=== PATIENT | male | born 1990 | race Two or more races ===

== ENCOUNTER 2016-12-28 17:29 | Emergency (ER) | payer SELFPAY ==
[~2016-12-28] VITALS: Ht 190.5 cm; Wt 131.5 kg
[2016-12-28 17:58] VITALS: BP 138/68
[2016-12-28] MEDS ORDERED: AMOX875T PO (18:40)
--- NOTE | 2016-12-28 18:41 | PHYS DOC ---
Past Medical History Past Medical History: No Pertinent History Past Surgical History: No Surgical History Alcohol Use: None Drug Use: None Adult General Chief Complaint Chief Complaint: RINGING IN EARS HPI HPI Patient is a 26 year old mentally no significant medical history who presents with ringing in the ears that began today. Patient states he has had nasal congestion for a couple days. Patient denies any fever. Patient states he has right ear pain only when he coughs or sneezes. Review of Systems Review of Systems Constitutional: Denies fever or chills [] Eyes: Denies change in visual acuity, redness, or eye pain [] HENT: right ear pain, ringing in the ears with nasal congestion. Respiratory: cough Cardiovascular: No additional information not addressed in HPI [] GI: Denies abdominal pain, nausea, vomiting, bloody stools or diarrhea [] : Denies dysuria or hematuria [] Musculoskeletal: Denies back pain or joint pain [] Integument: Denies rash or skin lesions [] Neurologic: Denies headache, focal weakness or sensory changes [] Endocrine: Denies polyuria or polydipsia [] Allergies Allergies Allergies Coded Allergies Type Severity Reaction Last Updated Verified No Known Drug Allergies 12/28/16 No Physical Exam Physical Exam Constitutional: Well developed, well nourished, no acute distress, non-toxic appearance. [] HENT: Normocephalic, atraumatic, bilateral external ears normal, oropharynx moist, no oral exudates, nose normal. [] Bilateral ear canals with mild amount of cerumen. mild erythema to bilateral TM. Eyes: PERRLA, EOMI, conjunctiva normal, no discharge. [] Neck: Normal range of motion, no tenderness, supple, no stridor. [] Cardiovascular:Heart rate regular rhythm, no murmur [] Lungs & Thorax: Bilateral breath sounds clear to auscultation [] Abdomen: Bowel sounds normal, soft, no tenderness, no masses, no pulsatile masses. [] Skin: Warm, dry, no erythema, no rash. [] Back: No tenderness, no CVA tenderness. [] Extremities: No tenderness, no cyanosis, no clubbing, ROM intact, no edema. [] Neurologic: Alert and oriented X 3, normal motor function, normal sensory function, no focal deficits noted. [] Psychologic: Affect normal, judgement normal, mood normal. [] Current Patient Data Vital Signs Vital Signs Date Time Temp Pulse Resp B/P (MAP) Pulse Ox O2 Delivery O2 Flow Rate FiO2 12/28/16 17:58 97.6 93 16 98 Room Air 97.6 EKG EKG [] Radiology/Procedures Radiology/Procedures [] Course & Med Decision Making Course & Med Decision Making Pertinent Labs and Imaging studies reviewed. (See chart for details) Patient has upper respiratory infection, cough,cerumen impaction, amoxicillin for otitis media. Patient was instructed to use ytbi-wxi-zfbrzdn cerumen removal agents including Debrox. Dragon Disclaimer Dragon Disclaimer This electronic medical record was generated, in whole or in part, using a voice recognition dictation system. Departure Departure Impression: Primary Impression: Tinnitus of both ears Additional Impressions: Impacted cerumen of both ears Cough Upper respiratory infection Otitis media Disposition: 01 HOME, SELF-CARE Condition: STABLE Referrals: NO PCP (PCP) Follow-up with your own doctor in 1-2 weeks Patient Instructions: Cerumen Impaction, Cough, Adult, [id number], Otitis Media, Adult, Upper Respiratory Infection, Adult, [id number] Additional Instructions: You need to buy diud-hmf-rokuyti cerumen removal agents including Debrox to remove wax from you ears. You can take vqde-baq-peuxzmy cough and congestion medicines. Complete your antibiotics. Scripts Amoxicillin (AMOXICILLIN) 875 Mg Tablet 1 TAB PO BID, #20 TAB Prov: RUPA WATSON APRN 12/28/16 Problem Qualifiers Additional Impressions: Upper respiratory infection URI type: unspecified URI Qualified Codes: J06.9 - Acute upper respiratory infection, unspecified Otitis media Otitis media type: other nonsuppurative Laterality: bilateral Chronicity: acute Recurrence: not specified as recurrent Qualified Codes: H65.193 - Other acute nonsuppurative otitis media, bilateral RUPA WATSON [employer] RE[employer]ER Dec 28, 2016 18:41
== END 2016-12-28 18:50 | disposition home or self-care (01) ==
LOC: ER 17:29
DX: H93.13 Tinnitus, bilateral (principal); H61.23 Impacted cerumen, bilateral; J06.9 Acute upper respiratory infection, unspecified; R05 Cough; R09.81 Nasal congestion
CPT/HCPCS: 99283

== ENCOUNTER 2017-03-17 03:00 | Emergency (ER) | payer SELFPAY ==
[~2017-03-17] VITALS: Ht 188 cm; Wt 131.5 kg
[~2017-03-17 03:00] MED LIST: AMOX875T PO
[2017-03-17] MEDS ORDERED: ONDANSETRON PF 4 MG/2 ML VIAL. IV ONE (04:00)
[2017-03-17] MEDS ORDERED: MECLIZINE HCL 12.5 MG TABLET. PO ONE (04:00)
--- NOTE | 2017-03-17 04:29 | RAD ---
CT head without contrast 03/17/2017 CLINICAL INDICATION: Vertigo. Comparison: None. TECHNIQUE: Multiple CT images of the head were obtained without contrast. *One or more of the following individualized dose reduction techniques were utilized for this examination: 1. Automated exposure control. 2. Adjustment of the mA and/or kV according to patient size. 3. Use of iterative reconstruction technique. FINDINGS: Ventricles and subarachnoid spaces are normal in size and configuration. No acute intracranial hemorrhage or extra-axial fluid collection. Leonard-white matter interfaces are maintained. The basal cisterns are patent. No midline shift or mass effect. IMPRESSION: No acute intracranial hemorrhage or mass effect. Electronically signed by: Jerome Bejarano MD (03/17/2017 4:25 AM) [id number]
[2017-03-17 04:30] LABS: BASO # 0.1 x10^3/uL (0.0-0.2); BASO % 1 % (0-3); EOS % 1 % (0-3); HEMATOCRIT 44.4 % (39.0-53.0); HEMOGLOBIN 14.9 g/dL (13.0-17.5); LYMPH # 3.3 x10^3/uL (1.0-4.8); LYMPH % 33 % (24-48); MEAN CORPUSCULAR HEMOGLOBIN 29 pg (25-35); MEAN CORPUSCULAR HGB CONC 34 g/dL (31-37); MEAN CORPUSCULAR VOLUME 86 fL (79-100); MONO % 6 % (0-9); NEUT % 60 % (31-73); PLATELET COUNT 309 x10^3/uL (140-400); RED BLOOD COUNT 5.16 x10^6/uL (4.30-5.70); RED CELL DISTRIBUTION WIDTH 13.5 % (11.5-14.5); WHITE BLOOD COUNT 10.1 x10^3/uL (4.0-11.0)
[2017-03-17 04:44] LABS: CALCIUM 8.8 mg/dL (8.5-10.1); GFR 89.6; POTASSIUM 3.7 mmol/L (3.5-5.1)
[2017-03-17 04:54] LABS: BILIRUBIN,URINE NEGATIVE (NEG); GLUCOSE,URINE NEGATIVE (NEG); NITRITE,URINE NEGATIVE (NEG); PH,URINE 5.5; PROTEIN,URINE NEGATIVE (NEG-TRACE); UROBILINOGEN,URINE 0.2 mg/dL (0.2 mg/dL)
[2017-03-17 04:59] LABS: BACTERIA,URINE 0 /HPF (0-FEW); RBC,URINE 0 /HPF (0-2); SQUAMOUS EPITHELIAL CELL,UR OCC /LPF; WBC,URINE 0 /HPF (0-4)
[2017-03-17 05:00] LABS: BARBITURATES NEG (NEG); BENZODIAZEPINES NEG (NEG); CANNABINOIDS NEG (NEG); COCAINE NEG (NEG); METHADONE NEG (NEG); OPIATES NEG (NEG); PHENCYCLIDINE NEG (NEG)
[2017-03-17 05:24] VITALS: BP 119/58
[2017-03-17] MEDS ORDERED: CARB-117 OT (05:42)
[2017-03-17] MEDS ORDERED: MECL25TA3 PO (05:42)
[2017-03-17] MEDS ORDERED: ONDA4TAB7 PO (05:42)
--- NOTE | 2017-03-17 07:09 | ED.ADGEN ---
Past Medical History Past Medical History: Other Additional Past Medical Histor: Vertigo Past Surgical History: No Surgical History Alcohol Use: None Drug Use: None Adult General Chief Complaint Chief Complaint: DIZZY/LIGHT HEADED HPI HPI Patient is a 26 year old man, with a history of vertigo, and "something they saw in my brain on CT", who presents to the emergency department with complaint of nausea, dizziness, lightheadedness, vomiting, and ear pain, worse on the right, for the past day. Also experiencing a mild headache on the top of his head. States that this happened previously. Patient states that he was evaluated in [place] about 2 years ago for similar symptoms and was told that he had vertigo. He states that he was supposed to have additional evaluation but is not follow-up as [place] Does not have a primary care provider, has not had any additional workup. He states he was told to see an ENT but did not follow-up. He states that he began experiencing dizziness and lightheadedness earlier today is getting progressively worse. He states that he was told that "there was something in my brain on CT", but is unable clarify further. He denies any injuries, any vision changes, any focal weakness, numbness, tingling, states that it feels as though "I am floating", and as though the room is moving around him. No syncope or presyncopal events, no chest pain, shortness breath. Denies any injuries. Review of Systems Review of Systems Constitutional: Denies fever or chills. [] Eyes: Denies change in visual acuity. [] HENT: Denies nasal congestion or sore throat. [] Respiratory: Denies cough or shortness of breath. [] Cardiovascular: Denies chest pain or edema. [] GI: Denies abdominal pain, nausea, vomiting, bloody stools or diarrhea. [] : Denies dysuria. [] Musculoskeletal: Denies back pain or joint pain. [] Integument: Denies rash. [] Neurologic: Denies headache, focal weakness or sensory changes. [] Endocrine: Denies polyuria or polydipsia. [] Lymphatic: Denies swollen glands. [] Psychiatric: Denies depression or anxiety. [] Current Medications Current Medications Current Medications Medications (Trade) Dose Ordered Sig/Ginger Start Time Stop Time Status Last Admin Dose Admin Meclizine HCl (Antivert) 25 mg 1X ONCE 03/17/17 04:00 03/17/17 04:01 DC 03/17/17 04:30 25 MG Ondansetron HCl (Zofran) 4 mg 1X ONCE 03/17/17 04:00 03/17/17 04:01 DC 03/17/17 04:30 4 MG Allergies Allergies Allergies Coded Allergies Type Severity Reaction Last Updated Verified No Known Drug Allergies 12/28/16 No Physical Exam Physical Exam Constitutional: Well developed, well nourished, complaining of nausea and lightheadedness, non-toxic appearance. [] HENT: Normocephalic, atraumatic, bilateral external ears normal, oropharynx moist, no oral exudates, nose normal. []Issue with a moderate amount of cerumen noted in the right ear, visualized TM is unremarkable, small amount of cerumen noted in the left. TM also normal. No mastoid tenderness, no evidence of acute infection or inflammation. Eyes: PERRLA, EOMI, conjunctiva normal, no discharge. [] No nystagmus. Neck: Normal range of motion, no tenderness, supple, no stridor. [] Cardiovascular:Heart rate regular rhythm, no murmur, S1, S2, rubs or gallops. [] Lungs & Thorax: Bilateral breath sounds clear to auscultation, no wheezing, rhonchi, rales. No chest wall crepitus or tenderness. [] Abdomen: Bowel sounds normal, soft, no tenderness, no rebound, rigidity, no guarding, no masses, no pulsatile masses. [] Skin: Warm, dry, no erythema, no rash. [] Back: No tenderness, no CVA tenderness. [] Extremities: No tenderness, no cyanosis, no clubbing, ROM intact, no edema. [ Negative Homans sign.] Neurologic: Alert and oriented X 3, normal motor function, normal sensory function, no focal deficits noted. [] Psychologic: Affect normal, judgement normal, mood normal. [] Current Patient Data Vital Signs Vital Signs Date Time Temp Pulse Resp B/P (MAP) Pulse Ox O2 Delivery O2 Flow Rate FiO2 03/17/17 05:24 65 16 119/58 (78) 96 Room Air 03/17/17 03:16 98.2 98.2 Lab Values Laboratory Tests Test 03/17/17 04:25 03/17/17 04:40 White Blood Count 10.1 x10^3/uL (4.0-11.0) Red Blood Count 5.16 x10^6/uL (4.30-5.70) Hemoglobin 14.9 g/dL (13.0-17.5) Hematocrit 44.4 % (39.0-53.0) Mean Corpuscular Volume 86 fL (79-100) Mean Corpuscular Hemoglobin 29 pg (25-35) Mean Corpuscular Hemoglobin Concent 34 g/dL (31-37) Red Cell Distribution Width 13.5 % (11.5-14.5) Platelet Count 309 x10^3/uL (140-400) Neutrophils (%) (Auto) 60 % (31-73) Lymphocytes (%) (Auto) 33 % (24-48) Monocytes (%) (Auto) 6 % (0-9) Eosinophils (%) (Auto) 1 % (0-3) Basophils (%) (Auto) 1 % (0-3) Neutrophils # (Auto) 6.1 x10^3uL (1.8-7.7) Lymphocytes # (Auto) 3.3 x10^3/uL (1.0-4.8) Monocytes # (Auto) 0.6 x10^3/uL (0.0-1.1) Eosinophils # (Auto) 0.1 x10^3/uL (0.0-0.7) Basophils # (Auto) 0.1 x10^3/uL (0.0-0.2) Sodium Level 138 mmol/L (136-145) Potassium Level 3.7 mmol/L (3.5-5.1) Chloride Level 104 mmol/L (98-107) Carbon Dioxide Level 26 mmol/L (21-32) Anion Gap 8 (6-14) Blood Urea Nitrogen 14 mg/dL (8-26) Creatinine 1.0 mg/dL (0.7-1.3) Estimated GFR (Cockcroft-Gault) 89.6 Glucose Level 99 mg/dL (70-99) Calcium Level 8.8 mg/dL (8.5-10.1) Urine Collection Type Unknown Urine Color Yellow Urine Clarity Clear Urine pH 5.5 Urine Specific Harris 1.020 Urine Protein Negative mg/dL (NEG-TRACE) Urine Glucose (UA) Negative mg/dL (NEG) Urine Ketones (Stick) Negative mg/dL (NEG) Urine Blood Negative (NEG) Urine Nitrite Negative (NEG) Urine Bilirubin Negative (NEG) Urine Urobilinogen Dipstick 0.2 mg/dL (0.2 mg/dL) Urine Leukocyte Esterase Negative (NEG) Urine RBC 0 /HPF (0-2) Urine WBC 0 /HPF (0-4) Urine Squamous Epithelial Cells Occ /LPF Urine Bacteria 0 /HPF (0-FEW) Urine Mucus Mod /LPF Urine Opiates Screen Neg (NEG) Urine Methadone Screen Neg (NEG) Urine Barbiturates Neg (NEG) Urine Phencyclidine Screen Neg (NEG) Urine Amphetamine/Methamphetamine Neg (NEG) Urine Benzodiazepines Screen Neg (NEG) Urine Cocaine Screen Neg (NEG) Urine Cannabinoids Screen Neg (NEG) Urine Ethyl Alcohol Neg (NEG) Laboratory Tests 03/17/17 04:25 Laboratory Tests 03/17/17 04:25 EKG EKG EC: Sinus rhythm, heart rate 61 beats are minute, upright axis, QTC of 386, CO 134, QRS of 86, no ST elevations or depressions, slightly peaked T waves noted, consistent with patient's body habitus and age. No evidence of acute ST abnormalities. As interpreted by me.[] Radiology/Procedures Radiology/Procedures [][facility] [address] [place] [address] IMAGING REPORT Signed PATIENT: NATALIA BARLOW ACCOUNT: [id number] : 1990 LOCATION: ER AGE: 26 SEX: M EXAM STATUS: REG ER ORD. PHYSICIAN: WILLIAM SANTILLAN DO REASON: Hx of abnormal head CT/vertigo PROCEDURE: CT HEAD WO CONTRAST CT head without contrast 03/17/2017 CLINICAL INDICATION: Vertigo. Comparison: None. TECHNIQUE: Multiple CT images of the head were obtained without contrast. *One or more of the following individualized dose reduction techniques were utilized for this examination: 1. Automated exposure control. 2. Adjustment of the mA and/or kV according to patient size. 3. Use of iterative reconstruction technique. FINDINGS: Ventricles and subarachnoid spaces are normal in size and configuration. No acute intracranial hemorrhage or extra-axial fluid collection. Leonard-white matter interfaces are maintained. The basal cisterns are patent. No midline shift or mass effect. IMPRESSION: No acute intracranial hemorrhage or mass effect. Electronically signed by: Jeremiah Bejarano MD (03/17/2017 4:25 AM) [facility] DICTATED and SIGNED BY: JEREMIAH BEJARANO MD DATE: 03/17/17 0423 CC: WILLIAM SANTILLAN DO; NO PCP ~ Course & Med Decision Making Course & Med Decision Making Pertinent Labs and Imaging studies reviewed. (See chart for details) Due to patient's unclear history of evaluation, and multiple symptoms, with report of "something in my head", after discussion at bedside will proceed with CT imaging of the head, laboratory studies, also administered Zofran and meclizine. Patient's CT imaging did not reveal any evidence of concerning findings, which was discussed with patient, laboratory studies were also unremarkable. On reevaluation, patient states he is feeling much better after receiving meclizine and Zofran, is now ambulating without difficulty in the ED. He states he is ready for discharge home. Patient noted to have some cerumen in the bilateral ears, was advised on use of Debrox, Zofran, and meclizine. Importance of establishing a primary care provider also discussed in detail, along with concerning symptoms that would prompt return to the emergency department for additional evaluation. Patient and significant other at bedside voice understanding and agreement. Patient discharged home in stable condition, with resolution of symptoms, with prescript prescriptions, precautions, and plan as above. Dragon Disclaimer Koko Disclaimer This electronic medical record was generated, in whole or in part, using a voice recognition dictation system. Departure Impression: Primary Impression: Vertigo Disposition: 01 HOME, SELF-CARE Condition: IMPROVED Scripts Ondansetron Hcl (ZOFRAN) 4 Mg Tablet 1 TAB PO PRN Q8HRS Y for NAUSEA, #12 TAB Prov: WILLIAM SANTILLAN DO 03/17/17 Meclizine Hcl (MECLIZINE HCL) 25 Mg Tablet 1-2 TAB PO PRN TID Y for VERTIGO, #30 TAB Prov: WILLIAM SANTILLAN DO 03/17/17 Carbamide Peroxide (Earwax Treatment Drops) 15 Ml Drops 15 ML OT BID Y for Ear Wax for 4 Days, #1 BOTTLE Please apply 5-10 drops in each ear twice daily for a maximum of 4 days to promote removal of earwax. Do not use for more than 4 days in a row. Prov: WILLIAM SANTILLAN DO 03/17/17 WILLIAM SANTILLAN DO Mar 17, 2017 07:09
--- NOTE | 2017-03-17 13:29 | EKG ---
[facility] [address] [place] [address] Test Date: 2017-03-17 Test Time: 04:35:30 Pat Name: NATALIA BARLOW Department: Room: Gender: M [employer]man: : 1990 Requested By: WILLIAM SANTILLAN Order Number: [id number] Reading MD: Sally Hannon Measurements Intervals [place] Rate: 61 P: 34 ND: 134 QRS: 21 QRSD: 86 T: 24 QT: 382 QTc: 386 Interpretive Statements SINUS RHYTHM NORMAL ECG Electronically Signed On 03-20-2017 11:15:44 CDT by Sally Hannon
== END 2017-03-17 05:49 | disposition home or self-care (01) ==
LOC: ER 03:00
DX: R42 Dizziness and giddiness (principal); H61.23 Impacted cerumen, bilateral; R11.2 Nausea with vomiting, unspecified; Z79.899 Other long term (current) drug therapy
CPT/HCPCS: 36415; 70450; 80048; 80307; 81001; 85025; 93005; 96374; 99285; J2405; J8597; G0479

== ENCOUNTER 2017-12-04 02:43 | Emergency (ER) | payer SELFPAY ==
[2017-12-04 03:19] LABS: ADD MAN DIFF? NO
[2017-12-04 03:24] LABS: BASO # 0.1 x10^3/uL (0.0-0.2); BASO % 1 % (0-3); EOS # 0.2 x10^3/uL (0.0-0.7); EOS % 2 % (0-3); HEMATOCRIT 44.2 % (39.0-53.0); HEMOGLOBIN 15.1 g/dL (13.0-17.5); LYMPH # 3.9 x10^3/uL (1.0-4.8); LYMPH % 35 % (24-48); MEAN CORPUSCULAR HEMOGLOBIN 30 pg (25-35); MEAN CORPUSCULAR HGB CONC 34 g/dL (31-37); MEAN CORPUSCULAR VOLUME 87 fL (79-100); MONO # 0.6 x10^3/uL (0.0-1.1); MONO % 5 % (0-9); NEUT # 6.5 x10^3uL (1.8-7.7); NEUT % 58 % (31-73); PLATELET COUNT 340 x10^3/uL (140-400); RED BLOOD COUNT 5.11 x10^6/uL (4.30-5.70); RED CELL DISTRIBUTION WIDTH 13.2 % (11.5-14.5); WHITE BLOOD COUNT 11.2 x10^3/uL (4.0-11.0)
[2017-12-04] MEDS: IV NORMAL SALINE 1000ML BAG 1,000 ML IV (03:30)
[2017-12-04 03:32] LABS: ANION GAP 9 (6-14); BLOOD UREA NITROGEN 10 mg/dL (8-26); CALCIUM 8.8 mg/dL (8.5-10.1); CARBON DIOXIDE 28 mmol/L (21-32); CHLORIDE 102 mmol/L (98-107); CREATININE 1.2 mg/dL (0.7-1.3); GFR 72.1; GLUCOSE 108 mg/dL (70-99); POTASSIUM 3.7 mmol/L (3.5-5.1); SODIUM 139 mmol/L (136-145)
== END 2017-12-04 05:43 | disposition home or self-care (01) ==
LOC: ER 02:43
DX: R42 Dizziness and giddiness (principal); R11.0 Nausea
CPT/HCPCS: 36415; 80048; 85025; 96360; 96361; 96374; 99284; 99285; J2060; J7030